=== PATIENT | male | born 1985 | race Two or more races ===

== ENCOUNTER 2020-01-01 00:05 | Emergency (ER) | payer OTHER ==
[~2020-01-01] VITALS: Ht 160 cm; Wt 81.6 kg
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
[2020-01-01] MEDS ORDERED: IBUPROFEN 400 MG TABLET ONE (00:51)
[2020-01-01] MEDS: IBUPROFEN 400 MG TABLET PO ONE (01:07)
--- NOTE | 2020-01-01 01:42 | NUR ---
Patient discharged in stable condition. Written and verbal after care instructions given. Patient verbalizes understanding of instruction. Pt in custody. Pt ambulated with steady gait.
[2020-01-01 01:43] VITALS: BP 119/81
== END 2020-01-01 01:43 ==
LOC: ER 00:05
DX: S63.592A Other specified sprain of left wrist, initial encounter (principal); S20.211A Contusion of right front wall of thorax, initial encounter; S09.8XXA Other specified injuries of head, initial encounter; V49.59XA Passenger injured in collision with other motor vehicles in traffic accident, initial encounter; Y93.89 Activity, other specified; Y92.413 State road as the place of occurrence of the external cause; Y99.8 Other external cause status
CPT/HCPCS: 70450-TC; 71100-TC; 73110